=== PATIENT | female | born 1965 | race Two or more races ===

== ENCOUNTER 2018-04-23 16:07 | Inpatient (IN) | payer MEDICAID ==
[~2018-04-23] VITALS: Ht 175.3 cm; Wt 86.6 kg
--- NOTE | 2018-04-23 16:10 | NUR ---
DROVE HERE FROM WORK,C/O CHEST PAIN,STRAIGHT TO ER BED 5,MONITOR,EKG
--- NOTE | 2018-04-23 16:20 | NUR ---
SEEN BY DR ALVARADO,VANITA ESTABLISHED,TOLERATED WELL,BLOOD DRAWN FOR LABS,REPORT TO DIANNA BROWN FOR ADOLFO
[2018-04-23] MEDS ORDERED: ASPIRIN 81 MG TAB.CHEW ONE (16:27)
[2018-04-23] MEDS ORDERED: NITROGLYCERIN 0.4 MG/TAB BOTTLE SL ONE (16:30)
[2018-04-23] MEDS ORDERED: NITROGLYCERIN 0.4 MG/TAB BOTTLE ONE (16:30)
[2018-04-23] MEDS ORDERED: ASPIRIN 81 MG TAB.CHEW PO ONE (16:30)
[2018-04-23 16:33] LABS: BASOPHILS # (AUTO) 0.1 /CMM (0.0-0.2); BASOPHILS % (AUTO) 0.8 % (0.0-2.0); EOSINOPHILS % (AUTO) 1.5 % (0.0-6.0); HEMATOCRIT 36 % (33-45); HEMOGLOBIN 11.7 g/dL (11.5-14.8); LYMPHOCYTES % (AUTO) 28.6 % (20.0-44.0); MEAN CORPUSCULAR HGB CONC 33 g/dl (31.0-36.0); MEAN CORPUSCULAR VOLUME 79 fL (82-100); MONOCYTES # (AUTO) 0.8 /CMM (0.1-1.30); MONOCYTES % (AUTO) 10.7 % (2.0-12.0); NEUTROPHILS # (AUTO) 4.2 /CMM (1.8-8.9); NEUTROPHILS % (AUTO) 58.4 % (43.0-81.0); PLATELET COUNT (AUTO) 250 /CMM (150-450); RED BLOOD CELL COUNT(AUTO) 4.52 MIL/uL (4.0-5.2); WHITE BLOOD COUNT (AUTO) 7.1 K/uL (4.3-11.0)
[2018-04-23 16:43] LABS: CALCIUM, SERUM 9.1 mg/dL (8.5-10.1); CARBON DIOXIDE 27 mmol/L (21-32); CHLORIDE 107 mmol/L (98-107); CREATININE 0.9 mg/dL (0.6-1.3); GLUCOSE 97 mg/dL (74-106); POTASSIUM 3.4 mmol/L (3.5-5.1); SODIUM SERUM 140 mmol/L (136-145); UREA NITROGEN, BLOOD 14 mg/dL (7-18)
--- NOTE | 2018-04-23 16:56 | NUR ---
PT GIVEN 3 DOSES OF NTG 0.4 SL. PT REPORTS 0/10 OF CP AFTER 3RD DOSE
[2018-04-23 16:58] LABS: ALANINE AMINOTRANSFERASE 18 U/L (12-78); ALBUMIN 3.8 g/dL (3.4-5.0); ALKALINE PHOSPHATASE 59 U/L (46-116); ASPARTATE AMINOTRANSFERASE 14 U/L (15-37); BILIRUBIN,DIRECT 0.1 mg/dL (0.0-0.2); BILIRUBIN,TOTAL 0.1 mg/dL (0.2-1.0)
[2018-04-23] MEDS ORDERED: ACETAMINOPHEN ES 500 MG TABLET PO ONE (17:30)
[2018-04-23] MEDS ORDERED: ACETAMINOPHEN ES 500 MG TABLET ONE (17:45)
[2018-04-23] MEDS ORDERED: IOHEXOL-350 100 ML VIAL IV ONE ×2 (18:06→18:12)
[2018-04-23] MEDS ORDERED: IV NS 0.9% 250 ML IV ONE (18:07)
[2018-04-23] MEDS ORDERED: CT SWABBABLE VALVE TRANS SET 1 EA INFUS.SET MC ONE (18:07)
--- NOTE | 2018-04-23 20:53 | NUR ---
TELE 315-2
--- NOTE | 2018-04-23 20:59 | NUR ---
NEW ROOM 306-2
--- NOTE | 2018-04-23 21:30 | NUR ---
REPORT GIVEN TO ASHER BROWN FOR ADOLFO; PT WILL BE TRANSPORTED TO 3/[facility] VIA ACLS PROTOCOL.
[2018-04-23 21:40] VITALS: BP 179/101
--- NOTE | 2018-04-23 21:40 | NUR ---
FUDGER NOTES PT STATED "I LEFT MY PRESCRIPTION GLASSES IN ER GURESSEX." FAMILY WENT DOWN TO CHECK. UNABLE TO FIND GLASSES. SPOKE WITH ER PERSONAL BANKING OFFICER IAN. WILL CHECK IN THE GURESSEX/ROOM PER ER CN. PERSONAL BANKING OFFICERSTEPHANIE MARTÍNEZ NOTIFIED. WILL CONTINUE TO MONITOR.
[2018-04-23] MEDS ORDERED: hydrALAZINE HCL IV 20 MG VIAL IV PRN (22:30)
[2018-04-23] MEDS ORDERED: Z GUARD REMEDY 2 OZ OINT TP PRN (23:30)
[2018-04-23] MEDS ORDERED: ONDANSETRON HCL/PF 4 MG/2 ML VIAL IVP PRN (23:30)
[2018-04-23] MEDS ORDERED: ATORVASTATIN 40 MG TABLET PO SCH (23:30)
[2018-04-23] MEDS ORDERED: ZOLPIDEM TARTRATE 5 MG TABLET PO PRN (23:30)
[2018-04-23] MEDS ORDERED: MAGNESIUM HYDROXIDE 30 ML UDC PO PRN (23:30)
[2018-04-23] MEDS ORDERED: NITROGLYCERIN 0.4 MG/TAB BOTTLE SL PRN (23:30)
[2018-04-23] MEDS ORDERED: HYDROCODONE/APAP 5/325MG 1 EACH TABLET PO PRN (23:30)
[2018-04-23] MEDS ORDERED: ACETAMINOPHEN 325 MG TABLET PO PRN (23:30)
[2018-04-24] VITALS: BP 129/81
[2018-04-24 04:00] VITALS: BP_SYST 124; BP_SYST 129; BP_DIAS 80; BP_DIAS 81
--- NOTE | 2018-04-24 06:00 | NUR ---
CALL CENTER OPERATOR NOTES SPOKE WITH ER OCCUPATIONAL THERAPIST REHAB MANAGER. UNABLE TO FIND GLASSES. NOTIFIED RN SUP. WILL CONTINUE TO MONITOR.
[2018-04-24 06:28] LABS: BASOPHILS % (AUTO) 0.5 % (0.0-2.0); EOSINOPHILS % (AUTO) 2.3 % (0.0-6.0); HEMATOCRIT 34 % (33-45); LYMPHOCYTES # (AUTO) 1.6 /CMM (0.8-4.8); LYMPHOCYTES % (AUTO) 26.7 % (20.0-44.0); MEAN CORPUSCULAR HGB CONC 33 g/dl (31.0-36.0); MEAN CORPUSCULAR VOLUME 79 fL (82-100); MONOCYTES # (AUTO) 0.7 /CMM (0.1-1.30); MONOCYTES % (AUTO) 11.7 % (2.0-12.0); NEUTROPHILS # (AUTO) 3.5 /CMM (1.8-8.9); NEUTROPHILS % (AUTO) 58.8 % (43.0-81.0); PLATELET COUNT (AUTO) 231 /CMM (150-450); RED BLOOD CELL COUNT(AUTO) 4.25 MIL/uL (4.0-5.2); WHITE BLOOD COUNT (AUTO) 5.9 K/uL (4.3-11.0)
--- NOTE | 2018-04-24 06:47 | NUR ---
KNUCKLE BENDER NOTES AWAKE & RESPONSIVE. NOT IN ANY DISTRESS. NO SOB NOTED. DENIES ANY PAIN OR DISCOMFORT AT THIS TIME. ON TELE SR @ 63 WITH IV-HL PATENT & INTACT. MONITORED ACCORDINGLY. CALL LIGHT WITHIN REACH. BED IN LOWEST POSITION. SR UP X 2 FOR SAFETY. WILL ENDORSE TO NEXT SHIFT.
[2018-04-24 06:49] LABS: CALCIUM, SERUM 8.6 mg/dL (8.5-10.1); CREATININE 0.9 mg/dL (0.6-1.3); MAGNESIUM 2.1 mg/dL (1.8-2.4); PHOSPHORUS 4.2 mg/dL (2.5-4.9); POTASSIUM 3.8 mmol/L (3.5-5.1)
--- NOTE | 2018-04-24 07:40 | NUR ---
Tele/RN - Assessment Patient in bed awake, alert and oriented x 4, denies chest pain at this time, stable on room air, no apparent distress, tele shows SR. Skin is intact. Patient is ambulatory with steady gait. Saline lock on the RAC is patent, intact, with no signs of infiltration. Labs reviewed, results WNL. Patient placed on NPO for CTCA, consent signed. Will continue with current medical management.
[2018-04-24 08:00] VITALS: BP 133/85
[2018-04-24 08:03] VITALS: BP 133/85
[2018-04-24] MEDS ORDERED: AMLODIPINE BESYLATE 5 MG TABLET PO SCH (09:00)
[2018-04-24] MEDS ORDERED: ASPIRIN 81 MG TAB.CHEW PO SCH (09:00)
[2018-04-24] MEDS ORDERED: ATOR40TA PO (10:47)
[2018-04-24] MEDS ORDERED: AMLO5TAB9 PO (10:47)
[2018-04-24] MEDS ORDERED: IOHEXOL-350 100 ML VIAL IV ONE (11:50)
[2018-04-24] MEDS ORDERED: IV NS 0.9% 250 ML IV ONE (11:52)
[2018-04-24] MEDS ORDERED: CT SWABBABLE VALVE TRANS SET 1 EA INFUS.SET MC ONE (11:52)
--- NOTE | 2018-04-24 12:00 | NUR ---
Tele/RN - CT Angio Patient sent to CTCA in no acute distress, denies chest pain, no apparent distress seen. Patient signed consent for CT coronary angio as ordered.
--- NOTE | 2018-04-24 12:35 | NUR ---
Tele/RN - CTCA Patient tolerated CTCA well, no adverse reaction seen, denies chest pain, stable on room air, SR on the monitor, c/o headache, will given medication once back on the unit. After procedure instructions given to patient and she verbalized full understanding. Will continue to monitor closely. Addendum: 04/24/18 at 1522 by DOMENICO ZUNIGA RN Charting correction for 04/24/18 12:30 Tele/RN - CTCA Patient tolerated CTCA well, no adverse reaction seen, denies chest pain, stable on room air, SR on the monitor, c/o headache, will give medication once back on the unit. After procedure instructions given to patient and she verbalized full understanding. Will continue to monitor closely.
--- NOTE | 2018-04-24 16:16 | NUR ---
TOOLS ADMINISTRATOR NOTES Patient discharge at this time going home. Patient stable, afebrile and denies pain. A/O x 4. Discharge instructions reviewed and explained to patient. Patient verbalized understanding. All belongings with Patient except "progressive eye glasses". Will follow up with Director in regards to missing item. Patient will follow primary MD. Patient escorted to the lobby for safety with RETAIL SALES DIRECTOR.
== END 2018-04-24 16:20 | disposition home or self-care (01) | DRG 199 ==
LOC: ER 16:07 → TELE 20:59 → MED 04-24 07:54
PROVIDERS: ADMIT Nurse Practitioner Acute Care; ATTEND Nurse Practitioner Acute Care
DX: I16.0 Hypertensive urgency (principal); D68.59 Other primary thrombophilia; R07.89 Other chest pain; I20.9 Angina pectoris, unspecified; E66.9 Obesity, unspecified; I10 Essential (primary) hypertension; Z68.28 Body mass index [BMI] 28.0-28.9, adult; E78.5 Hyperlipidemia, unspecified; E87.6 Hypokalemia
CPT/HCPCS: 36415; 71045-TC; 75574; 80048-TC; 80061-TC; 80076-TC; 83735-TC; 84100-TC; 84484-TC; 85025-TC; 85378-TC; 87081-TC; 93307-TC; G0378; J0360; J7050; Q9967